=== PATIENT | female | born 1950 | race Caucasian/White ===

== ENCOUNTER 2017-01-14 10:57 | Emergency (ER) | payer BC ==
[2017-01-14 11:29] VITALS: BP 162/90
[2017-01-14] MEDS ORDERED: Ibuprofen TAB* 600 MG PO ONE (12:16)
--- NOTE | 2017-01-14 12:29 | UC ---
Batool Lott SooYoung, scribed for Anjelica Curry MD on 01/14/17 at 1152 . Cardiac HPI - HPI Summary HPI Summary: A 66 y/o F [place] [facility] [place]/o ongoing intermittent episodes of musculoskeletal discomfort on R-side of chest onset one month ago. Discomfort is radiating to back. Denies SOB, fever, chills, HOLDEN, dysphagia, abd pain, changes to breasts, nipple discharge. Pt states she slept on her R side which is unusual about one month ago and since then she's had this discomfort and tenderness on her R breast as if a "rib might have popped out." Alleviating factors: laying down. Aggravating factors: deep breaths. Pt has never had a stress test. Pt has not taken any OTC meds for the discomfort. Pt has not seen her PCP, Dr. Sawyer. Lesly PMHx. Patient's medication reviewed this visit. - History of Current Complaint Chief Complaint: UCGeneralIllness Stated Complaint: BREAST PAIN Time Seen by Provider: 01/14/17 11:46 Hx Obtained From: Patient Onset/Duration: Lasting Weeks Timing: Intermittent Episodes Lasting: Initial Severity: Moderate Current Severity: Moderate Chest Pain Location: Right Lateral - radiating to back Aggravating: Deep Breaths Alleviating: Position Associated Signs & Symptoms: Positive: Negative - Allergy/Home Medications Allergies/Adverse Reactions: Allergies Allergy/AdvReac Type Severity Reaction Status Date / Time Gluten Meal Allergy gi Verified 01/14/17 11:17 Iodine AdvReac Severe AIRWAY Verified 01/03/14 08:48 Contrast dye Allergy Unknown Uncoded 09/19/15 13:58 Reaction Details PMH/Surg Hx/FS Hx/Imm Hx Previously Healthy: Yes Endocrine History Of: Denies: Diabetes, Thyroid Disease Cardiovascular History Of: Denies: Cardiac Disorders, Hypertension Respiratory History Of: Denies: COPD, Asthma GI/ History Of: Denies: Ulcer Cancer History Of: Denies: Breast Cancer - Surgical History Surgical History: Yes Surgery Procedure, Year, and Place: hyster,[facility] - Family History Known Family History: Positive: Other - neg: Breast CA - Social History Occupation: Employed Full-time Lives: With Family Alcohol Use: None Substance Use Type: None Smoking Status (MU): Never Smoked Tobacco Review of Systems Constitutional: Negative Skin: Negative Eyes: Negative ENT: Negative Respiratory: Negative Cardiovascular: Negative Gastrointestinal: Negative Genitourinary: Negative Motor: Negative Neurovascular: Negative Musculoskeletal: Other: - pos: pain at R-side of chest Neurological: Negative Psychological: Negative All Other Systems Reviewed And Are Negative: Yes Physical Exam Vital Signs: Initial Vital Signs Pulse 80 01/14/17 11:17 Resp 18 01/14/17 11:17 BP 162/90 01/14/17 11:17 Pulse Ox 99 01/14/17 11:17 Diagnostics - Radiology CXR Xray Interpretation: No Acute Changes - IMPRESSION: No active cardiopulmonary dz. Radiology Interpretation Completed By: Radiologist - EKG Cardiac Rate: NL - 76 bpm Cardiac Rhythm: Sinus: Normal ST Segment: Normal - no acute ST wave changes - Assessment/Plan Course Of Treatment: Blood pressure noted and patient informed to follow up with PCP. Discharge - Discharge Plan Condition: Stable Disposition: HOME Patient Education Materials: Chest Wall Pain (ED), Musculoskeletal Pain (ED) Referrals: Librado Farfan MD [Primary Care Provider] - Additional Instructions: - Okay to alternate ibuprofen (advil, motrin) and tylenol every 3 hours for pain. - Apply heat to your sore muscle - after you have applied heat, slow gentle stretching exercises - contact your doctor to schedule a follow-up appointment this week - If you develop increased pain, shortness of breath, lightheadedness, nausea, cough or any other concerns, you should call 911 or go to the emergency department The documentation as recorded by the Batool perry SooYoung accurately reflects the service I personally performed and the decisions made by me, Anjelica Curry MD.
--- NOTE | 2017-01-14 12:40 | RAD ---
HISTORY: Right chest wall pain COMPARISONS: January 29, 2016 VIEWS: 2: Frontal dual-energy and lateral views of the chest. FINDINGS: CARDIOMEDIASTINAL SILHOUETTE: The cardiomediastinal silhouette is normal. PEGGY: The peggy are normal. PLEURA: The costophrenic angles are sharp. No pleural abnormalities are noted. LUNG PARENCHYMA: The lungs are clear. ABDOMEN: The upper abdomen is clear. There is no subphrenic gas. BONES AND SOFT TISSUES: No bone or soft tissue abnormalities are noted. OTHER: None. IMPRESSION: NO ACTIVE CARDIOPULMONARY DISEASE.
== END 2017-01-14 12:54 | disposition home or self-care (01) ==
LOC: UCEAST 10:57
DX: R07.89 Other chest pain (principal); R03.0 Elevated blood-pressure reading, without diagnosis of hypertension
CPT/HCPCS: 71020; 93005; 99212; A9270-GY; G0463

== ENCOUNTER 2018-02-03 12:56 | Emergency (ER) | payer BC, OTHER ==
[2018-02-03 13:15] VITALS: BP 150/78
--- NOTE | 2018-02-03 13:37 | UC ---
Complaint Female HPI - HPI Summary HPI Summary: ONSET OF SHARP LEFT FLANK PAIN YESTERDAY MORNING THAT IS CONSTANT. UNABLE TO SLEEP DUE TO THE DISCOMFORT. ALSO HAS SOME NAUSEA BUT DENIES FEVER. SHE HAS HAD 4 UTIS IN THE PAST 8 MONTHS. SHE IS NOT HISTORICALLY A PERSON WHO GETS FREQUENT UTI. WAS ADVISED BY HER PCP THAT SHOULD HER SYMPTOMS RETURN AGAIN SHE SHOULD BE FOLLOWED BY UROLOGY. WHILE PATIENT DENIES ANY URINARY SYMPTOMS-NO DYSURIA, FREQUENCY OR URGENCY SHE IS CONCERNED ABOUT SOMETHING IN HER KIDNEY SO CALLED [facility] TODAY. SHE WAS ADVISED TO COME HERE FOR URINE DIP AND IMAGING PRIOR TO BEING SEEN. - History Of Current Complaint Chief Complaint: UCGU Stated Complaint: LOWER BACK PAIN Time Seen by Provider: 02/03/18 13:20 Hx Obtained From: Patient Onset/Duration: Gradual Onset, Lasting Days - 1 DAY, Still Present Timing: Constant Severity Initially: Moderate Severity Currently: Moderate Pain Intensity: 4 Pain Scale Used: 0-10 Numeric Character: Sharp Aggravating Factor(s): Nothing Alleviating Factor(s): Nothing Associated Signs And Symptoms: Positive: Back Pain, Nausea. Negative: Fever - Allergies/Home Medications Allergies/Adverse Reactions: Allergies Allergy/AdvReac Type Severity Reaction Status Date / Time gluten Allergy GI Upset Verified 02/03/18 13:15 Iodinated Contrast- Oral and Allergy Airway Verified 02/03/18 13:15 IV Dye Obstruction Home Medications: Home Medications ALPRAZolam TAB* [Xanax TAB*] 1 tab PO DAILY 02/03/18 [History Confirmed 02/03/18 ] Hydrocodone/Acetaminophen [Hydrocodone-Acetamin 5-325 mg] 1 tab PO BID PRN 02/03 [History Confirmed 02/03/18] Ibuprofen [Advil] 3 tab PO BID 02/03/18 [History Confirmed 02/03/18] PMH/Surg Hx/FS Hx/Imm Hx - Additional Past Medical History Additional PMH: RECURRENT UTI SINCE 05/2017 - Surgical History Surgical History: Yes Surgery Procedure, Year, and Place: gallbladder removed. hysterectomy - Family History Known Family History: Positive: Renal Disease - KIDNEY STONES, Other - neg: Breast CA Negative: Hypertension - Social History Alcohol Use: None Substance Use Type: None Smoking Status (MU): Never Smoked Tobacco - Immunization History Most Recent Tetanus Shot: UTD Review of Systems Constitutional: Negative Respiratory: Negative Cardiovascular: Negative Gastrointestinal: Nausea Genitourinary: Negative Musculoskeletal: Myalgia All Other Systems Reviewed And Are Negative: Yes Physical Exam Triage Information Reviewed: Yes Appearance: Well-Appearing, No Pain Distress, Well-Nourished Vital Signs: Initial Vital Signs Temp 97.6 F 02/03/18 13:08 Pulse 81 02/03/18 13:08 Resp 18 02/03/18 13:08 BP 150/78 02/03/18 13:08 Pulse Ox 100 02/03/18 13:08 Vital Signs Reviewed: Yes Eyes: Positive: Conjunctiva Clear ENT: Positive: Hearing grossly normal Neck: Positive: Supple Respiratory: Positive: No respiratory distress, No accessory muscle use Cardiovascular: Positive: Pulses Normal Abdomen Description: Positive: Nontender, Soft, CVA Tenderness (L). Negative: CVA Tenderness (R), Distended, Guarding Musculoskeletal: Positive: No Edema Neurological: Positive: Alert Psychological: Positive: Age Appropriate Behavior Skin: Negative: rashes Diagnostics - Laboratory Diagnostic Studies Completed/Ordered: URINE DIP UNREMARKABLE - Radiology CT ABD/PELVIS W/O CONTRAST Xray Interpretation: Positive (See Comments) - 1. NO APPRECIABLE HYDRONEPHROSIS OR NEPHROLITHIASIS 2. ILL-DEFINED LOW ATTENUATION OF THE BODY OF THE PANCREAS WITHOUT PANCREATIC DUCTAL DILATATION. THE DIFFERENTIAL DOES INCLUDE PANCREATIC NEOPLASM. RECOMMEND FURTHER EVALUATION WITH MULTIPHASE CONTRAST-ENHANCED PANCREATIC PROTOCOL CT OF THE ABDOMEN OR CONTRAST-ENHANCED MRI OF THE ABDOMEN IN THE NONACUTE SETTING. Radiology Interpretation Completed By: Radiologist Complaint Female Dx - Course Course Of Treatment: URINE DIP UNREMARKABLE TODAY. NO HYDRONEPHROSIS OR NEPHROLITHIASIS SEEN ON CT SCAN. PATIENT'S FLANK PAIN HAS IMPROVED SINCE YESTERDAY SO NO CLEAR INDICATION FOR UROLOGY EVALUATION TODAY. INCIDENTALLY AN AREA OF LOW ATTENUATION IN THE PANCREAS WAS SEEN ON CT SCAN THAT IS CONCERNING FOR NEOPLASM. IT HAS BEEN STRESSED TO THE PATIENT THE IMPORTANCE OF FOLLOWING UP WITH HER PCP THIS WEEK FOR CONTRAST ENHANCED STUDY FOR FURTHER EVALUATION OF THIS ABNORMALITY. PATIENT DENIES ANY RECENT WEIGHT LOSS, FEVER, SWEATS OR EASY BRUISING. - Differential Dx/Diagnosis Provider Diagnoses: 1. LEFT FLANK PAIN. 2. PANCREATIC ABNORMALITY ON CT SCAN Discharge - Sign-Out/Discharge Documenting (check all that apply): Discharge/Admit/Transfer - Discharge Plan Condition: Stable Disposition: HOME Patient Education Materials: Flank Pain (ED) Referrals: Librado Farfan MD [Primary Care Provider] - 3 Days Additional Instructions: UNCLEAR ETIOLOGY OF YOUR LEFT FLANK PAIN TODAY. URINE TEST UNREMARKABLE. NONCONTRAST CT SCAN TODAY NEGATIVE FOR KIDNEY STONE BUT DID SHOW SOME LOW ATTENUATION IN THE PANCREAS CONCERNING FOR NEOPLASM. FOLLOW-UP WITH YOUR PCP THIS WEEK FOR FURTHER EVALUATION. YOU NEED A CONTRAST ENHANCED PANCREATIC PROTOCOL CT OF THE ABDOMEN/PELVIS. [facility] [place] IF YOUR PAIN WORSENS OR YOU DEVELOP FEVER , NAUSEA OR ANY OTHER CONCERNING SYMPTOMS. - Billing Disposition and Condition Condition: STABLE Disposition: Home
--- NOTE | 2018-02-03 14:15 | RAD ---
CLINICAL HISTORY: LEFT FLANK PAIN COMPARISON: None TECHNIQUE: Multiple contiguous axial CT scans were obtained of the abdomen and pelvis after the administration of intravenous contrast. Coronal and sagittal multiplanar reformations are submitted for review. FINDINGS: LUNG BASES: The lung bases are clear. LIVER: There are multiple low-attenuation lesions of liver most consistent with hepatic cysts. BILE DUCTS: There is no intrahepatic or extrahepatic biliary dilatation. GALLBLADDER: The gallbladder is not seen consistent with the history of cholecystectomy. PANCREAS: There is ill-defined low attenuation of the body of the pancreas on axial image 49 and coronal image 71 measuring approximately 3.5 x 1.8 x 0.7 cm in size. SPLEEN: Normal in size and appearance. UPPER GI TRACT: Evaluation of the gastrointestinal tract is limited by incomplete gastric distention. The upper GI tract is unremarkable. SMALL BOWEL AND MESENTERY: The small bowel is normal in contour, course, and caliber. There is no obstruction or dilatation. COLON: The colon is normal in contour, course, caliber. There is no pericolonic inflammatory change. ADRENALS: Normal bilaterally. KIDNEYS: The kidneys are normal in shape, size, contour, and axis. There is no hydronephrosis or nephrolithiasis. BLADDER: The bladder is smooth in contour. PELVIC ORGANS: The pelvic organs are not visualized. AORTA: The aorta is normal. IVC: Unremarkable LYMPH NODES: There is no lymphadenopathy by size criteria. ABDOMINAL WALL: There is no evidence for abdominal wall hernia. BONES AND SOFT TISSUES: Degenerative changes are noted. OTHER: None IMPRESSION: 1. NO APPRECIABLE HYDRONEPHROSIS OR NEPHROLITHIASIS 2. ILL-DEFINED LOW ATTENUATION OF THE BODY OF THE PANCREAS WITHOUT PANCREATIC DUCTAL DILATATION. THE DIFFERENTIAL DOES INCLUDE PANCREATIC NEOPLASM. RECOMMEND FURTHER EVALUATION WITH MULTIPHASE CONTRAST-ENHANCED PANCREATIC PROTOCOL CT OF THE ABDOMEN OR CONTRAST-ENHANCED MRI OF THE ABDOMEN IN THE NONACUTE SETTING.
== END 2018-02-03 14:42 | disposition home or self-care (01) ==
LOC: UCEAST 12:56
DX: M54.5 Low back pain (principal); K86.89 Other specified diseases of pancreas; R11.0 Nausea; Z87.440 Personal history of urinary (tract) infections; Z87.442 Personal history of urinary calculi; Z90.710 Acquired absence of both cervix and uterus; Z90.49 Acquired absence of other specified parts of digestive tract; Z91.041 Radiographic dye allergy status
CPT/HCPCS: 74176; 81003; 99211; G0463

== ENCOUNTER 2018-02-20 08:06 | Emergency (ER) | payer OTHER ==
[2018-02-20 08:23] VITALS: BP 143/75
--- NOTE | 2018-02-20 08:45 | UC ---
Haritha Lott Julia, scribed for Aristides Feng MD on 02/20/18 at 0823 . Skin Complaint HPI - HPI Summary HPI Summary: A 68 year old F presents to [facility] with a chief complaint of rash to the RUQ for the past three weeks worsening two days ago with spreading to the right arm. Additionally c/o erythema and yellow discharge from the right eye. - History of Current Complaint Chief Complaint: UCSkin Time Seen by Provider: 02/20/18 08:10 Stated Complaint: RASG Hx Obtained From: Patient Onset/Duration: Lasting Weeks, Worse Since - two days ago Skin Exposure Onset/Duration: Weeks Ago Timing: Constant Pain Intensity: 0 Location: Hand (Right) - arm, Other - RUQ Associated Signs & Symptoms: Positive: Rash, Drainage - from eyes - Allergy/Home Medications Allergies/Adverse Reactions: Allergies Allergy/AdvReac Type Severity Reaction Status Date / Time gluten Allergy GI Upset Verified 02/20/18 08:16 Iodinated Contrast- Oral and Allergy Airway Verified 02/20/18 08:16 IV Dye Obstruction Review of Systems Skin: Rash Eyes: Drainage, Eye Redness All Other Systems Reviewed And Are Negative: Yes PMH/Surg Hx/FS Hx/Imm Hx Previously Healthy: Yes - Surgical History Surgical History: Yes Surgery Procedure, Year, and Place: CHOLECYSTECTOMY, HYSTERECTOMY, CYST REMOVED FROM COCCYX AREA(SUPERFICIAL) - Family History Known Family History: Positive: Renal Disease - KIDNEY STONES, Other - neg: Breast CA Negative: Hypertension - Social History Alcohol Use: Occasionally Substance Use Type: None Smoking Status (MU): Never Smoked Tobacco - Immunization History Most Recent Tetanus Shot: UTD Physical Exam - Summary Physical Exam Summary: VITAL SIGNS: Reviewed. GENERAL: Patient is a well-developed and nourished female who is lying comfortable in the stretcher. Patient is not in any acute respiratory distress. HEAD AND FACE: Normocephalic EYES: PERRLA, EOMI x 2. conjunctival injection with yellow discharge EARS: Hearing grossly intact. MOUTH: Oropharynx within normal limits. NECK: Supple, trachea is midline, no adenopathy, no JVD, no carotid bruit. CHEST: Symmetric, no tenderness at palpation LUNGS: Clear to auscultation bilaterally. No wheezing or crackles. CVS: Regular rate and rhythm, S1 and S2 present, no murmurs or gallops appreciated. ABDOMEN: Soft, non-tender. Bowel sounds are normal. No abdominal abnormal pulsations. EXTREMITIES: Full ROM in all major joints, no edema, no cyanosis or clubbing. NEURO: Alert and oriented x 3. No acute neurological deficits. Speech is normal and follows commands. SKIN: Dry and warm, Vesicular rash in the RUQ and R forearm Triage Information Reviewed: Yes Vital Signs: Initial Vital Signs Temp 97.6 F 02/20/18 08:17 Pulse 79 02/20/18 08:17 Resp 18 02/20/18 08:17 BP 143/75 02/20/18 08:17 Pulse Ox 99 02/20/18 08:17 Vital Signs Reviewed: Yes Course/Dx - Course Course Of Treatment: Patient with shingles for which the patient was given Valtrex. Also seemed to the patient has right eye conjunctivitis for which the patient was given ciprofloxacin ophthalmic. Patient will be discharged home with follow-up with primary care physician. She is hemodynamically stable alert and oriented 3. - Diagnoses Provider Diagnoses: shingles, conjunctivitis Discharge - Sign-Out/Discharge Documenting (check all that apply): Discharge/Admit/Transfer - Discharge Plan Condition: Stable Disposition: HOME Prescriptions: Ciprofloxacin 0.3% OPTH.ANDERSON* [Cipro 0.3% Opth*] 2 drop RIGHT EYE Q4H #1 btl ValACYclovir (*) [Valtrex 1 GM(*)] 1 gm PO TID #21 tab Patient Education Materials: Shingles (ED), Conjunctivitis (ED) Referrals: Librado Farfan MD [Primary Care Provider] - Additional Instructions: Take medications as instructed Increase your fluid intake Return to the if symptoms worsen - Billing Disposition and Condition Condition: STABLE Disposition: Home The documentation as recorded by the Haritha perry Julia accurately reflects the service I personally performed and the decisions made by , Aristides Feng MD.
== END 2018-02-20 08:40 | disposition home or self-care (01) ==
LOC: UCEAST 08:06
DX: B02.9 Zoster without complications (principal); H10.9 Unspecified conjunctivitis; Z91.018 Allergy to other foods; Z91.041 Radiographic dye allergy status
CPT/HCPCS: 99212; G0463

== ENCOUNTER 2022-04-23 19:37 | Inpatient (IN) ==
[2022-04-23 19:59] LABS: ABS Basophils 0.1 10^3/ul (0-0.2); ABS Eosinophils 0.2 10^3/ul (0-0.6); ABS Lymphocytes 2.8 10^3/ul (1.0-4.8); ABS Monocytes 0.6 10^3/ul (0-0.8); ABS Neutrophils 4.1 10^3/ul (1.5-7.7); Eosinophil % 2.8 %; Hematocrit 44 % (35-47); Lymphocyte % 35.7 %; Mean Corpuscular HGB Conc 35 g/dL (31-36); Mean Corpuscular Hemoglobin 32 pg (27-31); Mean Corpuscular Volume 92 fL (80-97); Mean Platelet Volume 8.5 fL (7.4-10.4); Platelet Count 190 10^3/uL (150-450); Red Blood Count 4.73 10^6 /uL (3.70-4.87); Red Cell Distribution Width 13 % (10-15); White Blood Count 7.7 10^3/uL (3.5-10.8)
[2022-04-23 20:21] LABS: INR 0.95 (0.89-1.11)
[2022-04-23 20:26] LABS: PCO2 Arterial 30 mmHg (35-45); PO2 Arterial 67 mmHg (80-100)
[2022-04-23 20:42] LABS: Albumin 4.2 g/dL (3.2-5.2); Calcium 9.4 mg/dL (8.6-10.3); Potassium 3.9 mmol/L (3.5-5.0); Total Bilirubin 0.5 mg/dL (0.2-1.0)
[2022-04-23 20:48] LABS: Albumin/Globulin Ratio 1.6 (1-3); Globulin 2.6 g/dL (2-4); Total Protein 6.8 g/dL (6.4-8.9)
[2022-04-23] MEDS ORDERED: Iohexol 350 (CONTRAST) 500 ML MDV IV ONE (21:11)
[2022-04-23 21:14] LABS: High Sensitivity Troponin 1 Hr 3 pg/mL (<15)
[2022-04-24] MEDS: Enoxaparin 40 MG/0.4 ML SYR SUBCUT SCH ×2 (00:41→20:39)
[2022-04-24] MEDS: Acetaminophen IV 1 GM/100ML 1,000 MG/100 ML BAG IV PRN ×3 (00:43→23:25)
[2022-04-24 00:58] LABS: C Reactive Protein 1.06 mg/L (<8.01)
[2022-04-24 04:52] LABS: ABS Eosinophils 0.2 10^3/ul (0-0.6); ABS Lymphocytes 2.5 10^3/ul (1.0-4.8); ABS Monocytes 0.5 10^3/ul (0-0.8); ABS Neutrophils 3.2 10^3/ul (1.5-7.7); Eosinophil % 2.4 %; Hematocrit 43 % (35-47); Hemoglobin 14.6 g/dL (12.0-16.0); Lymphocyte % 39.1 %; Mean Corpuscular HGB Conc 34 g/dL (31-36); Mean Corpuscular Hemoglobin 31 pg (27-31); Mean Corpuscular Volume 92 fL (80-97); Mean Platelet Volume 8.5 fL (7.4-10.4); Nucleated Red Blood Cells % 0.1; Platelet Count 173 10^3/uL (150-450); Red Blood Count 4.71 10^6 /uL (3.70-4.87); Red Cell Distribution Width 13 % (10-15); White Blood Count 6.5 10^3/uL (3.5-10.8)
[2022-04-24 05:26] LABS: Calcium 9.1 mg/dL (8.6-10.3); eGFR CKD-EPI 89.9 (>60)
[2022-04-24] MEDS ORDERED: Perflutren Lipid Microsphere 3 ML VIAL ONE (08:30)
[2022-04-24 16:42] LABS: HDL Cholesterol 49.2 mg/dL
[2022-04-25] MEDS ORDERED: Acetaminophen IV 1 GM/100ML 1,000 MG/100 ML BAG IV PRN (04:37)
[2022-04-25] MEDS ORDERED: Ondansetron 4 mg VIAL 2 MG/ML 2 ml VIAL IV ONE (06:45)
[2022-04-25] MEDS ORDERED: Aminophylline 25 MG/ML VIAL ONE (12:04)
[2022-04-25] MEDS ORDERED: Regadenoson 0.4 MG/5 ML SYRINGE ONE (12:04)
[2022-04-25 16:45] VITALS: BP 143/86
== END 2022-04-25 17:25 | disposition home or self-care (01) | DRG 189 ==
LOC: ED 19:37 → EDHOLD 23:45 → ICU 04-24 00:48
PROVIDERS: ADMIT Hospitalist; ATTEND Hospitalist